=== PATIENT | male | born 1960 | race Caucasian/White ===

== ENCOUNTER 2020-10-28 23:45 | Inpatient (IN) | payer MEDICAID ==
[~2020-10-28] VITALS: Ht 180.3 cm; Wt 90.0 kg
[~2020-10-28 23:45] MED LIST: NO HOME MEDS
[2020-10-29 00:44] LABS: BASOPHILS # (AUTO) 0.1 X10'3 (0-0.2); BASOPHILS % (AUTO) 1.3 % (0-1); EOSINOPHILS # (AUTO) 0.6 X10'3 (0-0.9); EOSINOPHILS % (AUTO) 6.6 % (0-6); HEMATOCRIT 34.1 % (42.0-52.0); HEMOGLOBIN 11.8 g/dl (14.0-17.9); LYMPHOCYTES # (AUTO) 2.1 X10'3 (1.1-4.8); LYMPHOCYTES % (AUTO) 24.9 % (21-51); MEAN CORPUSCULAR HEMOGLOBIN 29.5 PG (27.0-31.0); MEAN CORPUSCULAR HGB CONC 34.7 g/dL (33.0-36.5); MEAN CORPUSCULAR VOLUME 85.1 FL (78-98); MEAN PLATELET VOLUME 6.6 FL (7.4-10.4); MONOCYTES # (AUTO) 0.6 X10'3 (0-0.9); MONOCYTES % (AUTO) 7.1 % (2-12); NEUTROPHILS # (AUTO) 5.2 X10'3 (1.8-7.7); NEUTROPHILS % (AUTO) 60.1 % (42-75); PLATELET COUNT 417 X10'3 (140-440); RED CELL DISTRIBUTION WIDTH 14.5 % (11.5-14.5); WHITE BLOOD COUNT 8.6 X10'3 (4.5-11.0)
[2020-10-29 01:03] LABS: ALBUMIN 3.5 G/DL (3.4-5.0); ANION GAP 13 (8-16); BILIRUBIN,TOTAL 0.3 MG/DL (0.1-1.0); BLOOD UREA NITROGEN 19 MG/DL (7-18); BUN/CREATININE RATIO 15.8 (5.4-32.0); C-REACTIVE PROTEIN 0.76 MG/DL (0.0-0.5); CALCIUM 8.6 MG/DL (8.5-10.1); CHLORIDE 107 MMOL/L (99-107); GLUCOSE 111 MG/DL (70-104); POTASSIUM 3.9 MMOL/L (3.5-5.1); SODIUM 144 MMOL/L (135-145); TOTAL CARBON DIOXIDE 24.4 MMOL/L (24-32); TOTAL PROTEIN 7.3 G/DL (6.4-8.2); eGFR 62 ML/MIN
[2020-10-29 01:04] LABS: ALANINE AMINOTRANSFERASE 26 U/L (12-78); ALBUMIN/GLOBULIN RATIO 0.9 (1.1-1.5); ALKALINE PHOSPHATASE 81 IU/L (46-116); ASPARTATE AMINO TRANSFERASE 16 U/L (10-37)
[2020-10-29] MEDS ORDERED: normal saline 1000ml 1,000 ML IV ONE (01:10)
[2020-10-29] MEDS ORDERED: magnesium hydroxide 30ml (MOM) UD suspension PO PRN (01:15)
[2020-10-29] MEDS ORDERED: ondansetron/PF 4mg/2ml inj IV PRN (01:15)
[2020-10-29] MEDS ORDERED: morphine 2 MG/ML inj. syringe IV PRN (01:15)
[2020-10-29] MEDS ORDERED: acetaminophen 325mg tablet PO PRN ×2 (01:15)
[2020-10-29] MEDS ORDERED: mag hydrox/Alum hydrox/simeth 30ml oral suspension PO PRN (01:15)
[2020-10-29] MEDS ORDERED: vancomycin/NS 1 GM ADD-VANTAGE 250 ML IV SCH (01:30)
[2020-10-29] MEDS: potassium cl 20mEq in 1/2 NS 1,000 ML IV SCH ×3 (04:14→22:00)
[2020-10-29] MEDS ORDERED: piperacillin/tazo 3.375gm/50ml 50 ML IV SCH (08:00)
--- NOTE | 2020-10-29 08:22 | NUR ---
Received patient report via phone from Papi OWENS for Steffany OWENS. Will pass off report to Steffany OWENS
[2020-10-29 09:00] VITALS: BP 130/68
[2020-10-29] MEDS: enoxaparin 40mg/0.4ml syringe SUBCUT SCH (10:30)
[2020-10-29 12:30] VITALS: BP 123/76
--- NOTE | 2020-10-29 18:34 | NUR ---
Problems reprioritized. Patient report given, questions answered & plan of care reviewed with ROMAN Mondragon.
[2020-10-29 19:00] VITALS: BP 155/95
--- NOTE | 2020-10-29 19:00 | NUR ---
Patient in room [facility]. I have received report from Yakelin OWENS and had the opportunity to ask questions and assume patient care.
[2020-10-30 00:34] VITALS: BP 130/72
[2020-10-30 06:10] LABS: BASOPHILS # (AUTO) 0.1 X10'3 (0-0.2); BASOPHILS % (AUTO) 1.7 % (0-1); EOSINOPHILS # (AUTO) 0.5 X10'3 (0-0.9); EOSINOPHILS % (AUTO) 10.2 % (0-6); HEMATOCRIT 35.3 % (42.0-52.0); HEMOGLOBIN 11.8 g/dl (14.0-17.9); LYMPHOCYTES # (AUTO) 1.6 X10'3 (1.1-4.8); LYMPHOCYTES % (AUTO) 29.9 % (21-51); MEAN CORPUSCULAR HEMOGLOBIN 29.1 PG (27.0-31.0); MEAN CORPUSCULAR HGB CONC 33.5 g/dL (33.0-36.5); MEAN CORPUSCULAR VOLUME 86.8 FL (78-98); MEAN PLATELET VOLUME 6.8 FL (7.4-10.4); MONOCYTES # (AUTO) 0.5 X10'3 (0-0.9); MONOCYTES % (AUTO) 9.4 % (2-12); NEUTROPHILS # (AUTO) 2.6 X10'3 (1.8-7.7); NEUTROPHILS % (AUTO) 48.8 % (42-75); PLATELET COUNT 386 X10'3 (140-440); RED BLOOD COUNT 4.06 X10'6 (4.70-6.10); RED CELL DISTRIBUTION WIDTH 14.9 % (11.5-14.5); WHITE BLOOD COUNT 5.4 X10'3 (4.5-11.0)
--- NOTE | 2020-10-30 06:11 | NUR ---
Problems reprioritized. Patient report given, questions answered & plan of care reviewed with Yakelin OWENS.
[2020-10-30 06:36] LABS: BLOOD UREA NITROGEN 14 MG/DL (7-18); BUN/CREATININE RATIO 16.9 (5.4-32.0); CREATININE 0.83 MG/DL (0.60-1.10); GLUCOSE 96 MG/DL (70-104); TOTAL CARBON DIOXIDE 25.7 MMOL/L (24-32)
[2020-10-30 06:37] LABS: ALANINE AMINOTRANSFERASE 21 U/L (12-78); ALBUMIN 2.9 G/DL (3.4-5.0); ALBUMIN/GLOBULIN RATIO 0.9 (1.1-1.5); ALKALINE PHOSPHATASE 66 IU/L (46-116); ASPARTATE AMINO TRANSFERASE 16 U/L (10-37); BILIRUBIN,TOTAL 0.5 MG/DL (0.1-1.0); CALCIUM 8.4 MG/DL (8.5-10.1); TOTAL PROTEIN 6.3 G/DL (6.4-8.2); eGFR > 90 ML/MIN
[2020-10-30 06:56] LABS: ANION GAP 9 (8-16); CHLORIDE 106 MMOL/L (99-107); POTASSIUM 4.2 MMOL/L (3.5-5.1); SODIUM 141 MMOL/L (135-145)
[2020-10-30 07:15] VITALS: BP 136/84
[2020-10-30] MEDS: enoxaparin 40mg/0.4ml syringe SUBCUT SCH (08:56)
[2020-10-30] MEDS: potassium cl 20mEq in 1/2 NS 1,000 ML IV SCH ×3 (08:57→20:17)
--- NOTE | 2020-10-30 11:43 | NUR ---
PAGER ID: [phone] MESSAGE: [id number]: pt c/o pain. only has morphine ordered. would you like something PO instead? thanks [phone]
[2020-10-30] MEDS ORDERED: HYDROcodone/acetaminophen 5mg/325mg tablet PO PRN (12:00)
[2020-10-30] MEDS: HYDROcodone/acetaminophen 10/325mg tab PO PRN ×2 (12:11→20:16)
[2020-10-30 12:14] VITALS: BP 118/72
[2020-10-30] MEDS ORDERED: VANCOMYCIN LEVEL IV ONE (12:30)
--- NOTE | 2020-10-30 18:09 | NUR ---
Problems reprioritized. Patient report given, questions answered & plan of care reviewed with ROMAN Mondragon.
[2020-10-30] MEDS ORDERED: prednisone 10mg tablet PO ONE (18:55)
[2020-10-30 19:00] VITALS: BP 117/62
--- NOTE | 2020-10-30 19:07 | NUR ---
Patient in room [facility]. I have received report from Yakelin OWENS and had the opportunity to ask questions and assume patient care.
[2020-10-30 23:43] VITALS: BP 127/85
[2020-10-31 06:18] LABS: BASOPHILS % (AUTO) 0.4 % (0-1); EOSINOPHILS % (AUTO) 0.1 % (0-6); HEMATOCRIT 36.2 % (42.0-52.0); HEMOGLOBIN 12.3 g/dl (14.0-17.9); LYMPHOCYTES # (AUTO) 0.7 X10'3 (1.1-4.8); LYMPHOCYTES % (AUTO) 11.3 % (21-51); MEAN CORPUSCULAR HEMOGLOBIN 29.2 PG (27.0-31.0); MEAN CORPUSCULAR HGB CONC 33.9 g/dL (33.0-36.5); MEAN CORPUSCULAR VOLUME 86.2 FL (78-98); MEAN PLATELET VOLUME 7.3 FL (7.4-10.4); MONOCYTES # (AUTO) 0.1 X10'3 (0-0.9); MONOCYTES % (AUTO) 1.1 % (2-12); NEUTROPHILS # (AUTO) 5.4 X10'3 (1.8-7.7); NEUTROPHILS % (AUTO) 87.1 % (42-75); PLATELET COUNT 417 X10'3 (140-440); RED CELL DISTRIBUTION WIDTH 14.7 % (11.5-14.5); WHITE BLOOD COUNT 6.2 X10'3 (4.5-11.0)
[2020-10-31 06:27] LABS: ALANINE AMINOTRANSFERASE 20 U/L (12-78); ALBUMIN 2.8 G/DL (3.4-5.0); ALBUMIN/GLOBULIN RATIO 0.7 (1.1-1.5); ALKALINE PHOSPHATASE 68 IU/L (46-116); ANION GAP 8 (8-16); ASPARTATE AMINO TRANSFERASE 14 U/L (10-37); BILIRUBIN,TOTAL 0.4 MG/DL (0.1-1.0); BLOOD UREA NITROGEN 14 MG/DL (7-18); BUN/CREATININE RATIO 17.7 (5.4-32.0); CALCIUM 8.3 MG/DL (8.5-10.1); CHLORIDE 105 MMOL/L (99-107); CREATININE 0.79 MG/DL (0.60-1.10); GLUCOSE 164 MG/DL (70-104); POTASSIUM 4.4 MMOL/L (3.5-5.1); SODIUM 139 MMOL/L (135-145); TOTAL CARBON DIOXIDE 26.5 MMOL/L (24-32); TOTAL PROTEIN 6.6 G/DL (6.4-8.2); eGFR > 90 ML/MIN
--- NOTE | 2020-10-31 06:34 | NUR ---
Problems reprioritized. Patient report given, questions answered & plan of care reviewed with Yakelin OWENS.
[2020-10-31 07:20] VITALS: BP 130/73
[2020-10-31] MEDS: enoxaparin 40mg/0.4ml syringe SUBCUT SCH (07:26)
[2020-10-31 12:39] VITALS: BP 115/71
[2020-10-31] MEDS: potassium cl 20mEq in 1/2 NS 1,000 ML IV SCH (15:45)
[2020-10-31] MEDS ORDERED: GADOTERATE MEGLUMINE 7.5 MMOL/15 ML VIAL IV ONE (17:47)
[2020-10-31 18:00] VITALS: BP 130/81
--- NOTE | 2020-10-31 18:46 | NUR ---
Patient in room [facility]. I have received report from IVANNA OWENS and had the opportunity to ask questions and assume patient care.
[2020-10-31] MEDS: HYDROcodone/acetaminophen 10/325mg tab PO PRN (20:53)
[2020-11-01] VITALS: BP 113/68
[2020-11-01] MEDS: potassium cl 20mEq in 1/2 NS 1,000 ML IV SCH (00:05)
--- NOTE | 2020-11-01 06:32 | NUR ---
Problems reprioritized. Patient report given, questions answered & plan of care reviewed with JOSÉ MIGUEL OWENS.
--- NOTE | 2020-11-01 06:36 | NUR ---
Patient in room [facility]. I have received report from ROMAN Crespo and had the opportunity to ask questions and assume patient care.
[2020-11-01 07:00] VITALS: BP 134/79
[2020-11-01 07:21] LABS: BASOPHILS # (AUTO) 0.1 X10'3 (0-0.2); BASOPHILS % (AUTO) 1.1 % (0-1); EOSINOPHILS # (AUTO) 0.4 X10'3 (0-0.9); EOSINOPHILS % (AUTO) 5.7 % (0-6); HEMATOCRIT 37.4 % (42.0-52.0); HEMOGLOBIN 12.6 g/dl (14.0-17.9); LYMPHOCYTES # (AUTO) 2.3 X10'3 (1.1-4.8); LYMPHOCYTES % (AUTO) 35.8 % (21-51); MEAN CORPUSCULAR HEMOGLOBIN 29.1 PG (27.0-31.0); MEAN CORPUSCULAR HGB CONC 33.7 g/dL (33.0-36.5); MEAN CORPUSCULAR VOLUME 86.4 FL (78-98); MONOCYTES # (AUTO) 0.6 X10'3 (0-0.9); MONOCYTES % (AUTO) 9.5 % (2-12); NEUTROPHILS % (AUTO) 47.9 % (42-75); PLATELET COUNT 395 X10'3 (140-440); RED BLOOD COUNT 4.33 X10'6 (4.70-6.10); RED CELL DISTRIBUTION WIDTH 14.7 % (11.5-14.5); WHITE BLOOD COUNT 6.3 X10'3 (4.5-11.0)
[2020-11-01 07:47] LABS: ALANINE AMINOTRANSFERASE 25 U/L (12-78); ALBUMIN/GLOBULIN RATIO 0.8 (1.1-1.5); ALKALINE PHOSPHATASE 68 IU/L (46-116); ANION GAP 7 (8-16); ASPARTATE AMINO TRANSFERASE 13 U/L (10-37); BILIRUBIN,TOTAL 0.3 MG/DL (0.1-1.0); BLOOD UREA NITROGEN 16 MG/DL (7-18); BUN/CREATININE RATIO 17.2 (5.4-32.0); CALCIUM 8.5 MG/DL (8.5-10.1); CHLORIDE 107 MMOL/L (99-107); CREATININE 0.93 MG/DL (0.60-1.10); GLUCOSE 90 MG/DL (70-104); POTASSIUM 4.3 MMOL/L (3.5-5.1); SODIUM 141 MMOL/L (135-145); TOTAL CARBON DIOXIDE 27.5 MMOL/L (24-32); TOTAL PROTEIN 6.6 G/DL (6.4-8.2); eGFR 83 ML/MIN
[2020-11-01] MEDS: enoxaparin 40mg/0.4ml syringe SUBCUT SCH (08:00)
[2020-11-01] MEDS: HYDROcodone/acetaminophen 10/325mg tab PO PRN (08:08)
[2020-11-01 11:00] VITALS: BP 118/77
--- NOTE | 2020-11-01 18:43 | NUR ---
Problems reprioritized. Patient report given, questions answered & plan of care reviewed with ROMAN Hernandez.
[2020-11-01 19:00] VITALS: BP 129/72
[2020-11-01] MEDS: morphine 2 MG/ML inj. syringe IV PRN (19:05)
[2020-11-02] VITALS: BP 124/64
[2020-11-02] MEDS: morphine 2 MG/ML inj. syringe IV PRN (02:54)
--- NOTE | 2020-11-02 06:25 | NUR ---
Patient in room [facility] 347. I have received report from Mary OWENS and had the opportunity to ask questions and assume patient care.
--- NOTE | 2020-11-02 06:31 | NUR ---
Problems reprioritized. Patient report given, questions answered & plan of care reviewed with Jeana OWENS. Addendum: 11/02/20 at 0631 by Mary Lujan RN Amended: Links added.
[2020-11-02 07:01] LABS: BASOPHILS # (AUTO) 0.1 X10'3 (0-0.2); BASOPHILS % (AUTO) 1.5 % (0-1); EOSINOPHILS # (AUTO) 0.4 X10'3 (0-0.9); HEMATOCRIT 37.7 % (42.0-52.0); HEMOGLOBIN 12.7 g/dl (14.0-17.9); LYMPHOCYTES # (AUTO) 1.5 X10'3 (1.1-4.8); LYMPHOCYTES % (AUTO) 29.1 % (21-51); MEAN CORPUSCULAR HEMOGLOBIN 29.1 PG (27.0-31.0); MEAN CORPUSCULAR HGB CONC 33.7 g/dL (33.0-36.5); MEAN CORPUSCULAR VOLUME 86.2 FL (78-98); MEAN PLATELET VOLUME 6.6 FL (7.4-10.4); MONOCYTES # (AUTO) 0.6 X10'3 (0-0.9); MONOCYTES % (AUTO) 10.9 % (2-12); NEUTROPHILS # (AUTO) 2.6 X10'3 (1.8-7.7); NEUTROPHILS % (AUTO) 50.5 % (42-75); PLATELET COUNT 356 X10'3 (140-440); RED BLOOD COUNT 4.37 X10'6 (4.70-6.10); WHITE BLOOD COUNT 5.2 X10'3 (4.5-11.0)
[2020-11-02 07:18] LABS: ALANINE AMINOTRANSFERASE 36 U/L (12-78); ALBUMIN/GLOBULIN RATIO 0.9 (1.1-1.5); ALKALINE PHOSPHATASE 58 IU/L (46-116); ANION GAP 6 (8-16); ASPARTATE AMINO TRANSFERASE 26 U/L (10-37); BILIRUBIN,TOTAL 0.4 MG/DL (0.1-1.0); BLOOD UREA NITROGEN 17 MG/DL (7-18); BUN/CREATININE RATIO 18.1 (5.4-32.0); CALCIUM 8.5 MG/DL (8.5-10.1); CHLORIDE 105 MMOL/L (99-107); CREATININE 0.94 MG/DL (0.60-1.10); GLUCOSE 89 MG/DL (70-104); POTASSIUM 4.2 MMOL/L (3.5-5.1); SODIUM 140 MMOL/L (135-145); TOTAL CARBON DIOXIDE 29.1 MMOL/L (24-32); TOTAL PROTEIN 6.5 G/DL (6.4-8.2); eGFR 82 ML/MIN
[2020-11-02 08:00] VITALS: BP 134/81
[2020-11-02] MEDS: enoxaparin 40mg/0.4ml syringe SUBCUT SCH (08:00)
[2020-11-02] MEDS: HYDROcodone/acetaminophen 10/325mg tab PO PRN (09:21)
[2020-11-02 11:00] VITALS: BP 122/65
[2020-11-02] MEDS ORDERED: ASPI-1265 PO (11:31)
[2020-11-02] MEDS ORDERED: ACET-1008 PO (11:31)
--- NOTE | 2020-11-02 14:30 | NUR ---
Pt is A & O x4 and in no apparent distress. pt verbalizes understanding of all Dc orders. Pt understands the importance of following with PCP and Dr Elizondo. pt's IV DC intact. pt DC to home with family. pt moving around well and able to do his care on his own. Pt's family came to the floor and pt was wheeled to the front where he was taken home.
== END 2020-11-02 14:30 | disposition home or self-care (01) | DRG 351 ==
LOC: ER 23:45 → ED HOLD 10-29 01:15 → SUR 3N 10-29 09:00
PROVIDERS: ADMIT Internal Medicine; ATTEND Family Medicine
DX: M25.072 Hemarthrosis, left ankle (principal); M00.9 Pyogenic arthritis, unspecified; F12.90 Cannabis use, unspecified, uncomplicated; M65.872 Other synovitis and tenosynovitis, left ankle and foot; G89.29 Other chronic pain; M54.9 Dorsalgia, unspecified; M25.571 Pain in right ankle and joints of right foot; F15.90 Other stimulant use, unspecified, uncomplicated; F17.210 Nicotine dependence, cigarettes, uncomplicated; Z91.14 Patient's other noncompliance with medication regimen
CPT/HCPCS: 36415; 73610; 73723; 80053; 83605; 84145; 84550; 85025; 85651; 86140; 87040; 87081; 97116; 97161; 97530; 99285; A9575; G0378; J1650; J2270; J2543; J3370; J3480; J7030; J7512

== ENCOUNTER 2022-10-27 09:56 | Emergency (ER) | payer MEDICAID ==
[~2022-10-27] VITALS: Ht 180.3 cm; Wt 90.9 kg
[2022-10-27 09:59] VITALS: BP 121/69
[2022-10-27 10:24] LABS: BASOPHILS # (AUTO) 0.1 X10'3 (0-0.2); EOSINOPHILS # (AUTO) 0.7 X10'3 (0-0.9); NEUTROPHILS # (AUTO) 12.3 X10'3 (1.8-7.7); PLATELET COUNT 299 X10'3 (140-440)
[2022-10-27 10:26] LABS: BASOPHILS % (AUTO) 0.6 % (0-1); EOSINOPHILS % (AUTO) 4.2 % (0-6); HEMATOCRIT 40.2 % (42.0-52.0); HEMOGLOBIN 13.2 g/dl (14.0-17.9); LYMPHOCYTES # (AUTO) 1.9 X10'3 (1.1-4.8); LYMPHOCYTES % (AUTO) 11.2 % (21-51); MEAN CORPUSCULAR HEMOGLOBIN 28.5 PG (27.0-31.0); MEAN CORPUSCULAR HGB CONC 32.8 g/dL (33.0-36.5); MEAN CORPUSCULAR VOLUME 86.9 FL (78-98); MONOCYTES # (AUTO) 1.6 X10'3 (0-0.9); MONOCYTES % (AUTO) 9.7 % (2-12); NEUTROPHILS % (AUTO) 74.3 % (42-75); RED BLOOD COUNT 4.62 X10'6 (4.70-6.10); RED CELL DISTRIBUTION WIDTH 15.2 % (11.5-14.5); WHITE BLOOD COUNT 16.5 X10'3 (4.5-11.0)
[2022-10-27 10:30] LABS: CLARITY,URINE CLEAR (Clear); COLOR,URINE YELLOW (Yellow); GLUCOSE, URINE NEGATIVE (Neg); KETONES,URINE NEGATIVE (Neg); LEUKOCYTE ESTERASE ,URINE NEGATIVE (Neg); NITRITES, URINE NEGATIVE (Neg); OCCULT BLOOD,URINE TRACE-INTACT (Neg); PH,URINE 5.5 (4.8-8.0); PROTEIN,URINE NEGATIVE (Neg); UROBILINOGEN,URINE 0.2 E.U/dL (0.2-1.0)
[2022-10-27] MEDS ORDERED: normal saline 1000ml 1,000 ML IV ONE (10:30)
[2022-10-27 10:34] LABS: UA COLLECTION TYPE CLN CATCH MIDSTREAM
[2022-10-27 10:40] LABS: BACTERIA,URINE FEW /HPF (Neg); HYALINE CASTS 0-3 /LPF (NEGATIVE); MUCUS STRANDS MANY /LPF (Neg); RBC,URINE 0-2 /HPF (0-2); SQUAMOUS EPITHELIAL CELL,UR FEW /LPF (FEW); WBC,URINE 0-4 /HPF (0-4)
[2022-10-27] MEDS ORDERED: PSYL575P22 PO (11:58)
[2022-10-27] MEDS ORDERED: AMOX-117 PO (11:58)
[2022-10-27 12:14] LABS: ALANINE AMINOTRANSFERASE 28 U/L (12-78); ALBUMIN 3.7 G/DL (3.4-5.0); ALKALINE PHOSPHATASE 88 IU/L (46-116); ANION GAP 11 (8-16); ASPARTATE AMINO TRANSFERASE 16 U/L (10-37); BILIRUBIN,TOTAL 0.9 MG/DL (0.1-1.0); BLOOD UREA NITROGEN 15 MG/DL (7-18); BUN/CREATININE RATIO 14.3 (10.0-20.0); CALCIUM 9.1 MG/DL (8.5-10.1); CHLORIDE 101 MMOL/L (99-107); CREATININE 1.05 MG/DL (0.60-1.10); GLUCOSE 118 MG/DL (70-104); LIPASE < 50 U/L (73-393); POTASSIUM 4.2 MMOL/L (3.5-5.1); SODIUM 136 MMOL/L (135-145); TOTAL CARBON DIOXIDE 24.2 MMOL/L (24-32); TOTAL PROTEIN 7.5 G/DL (6.4-8.2); eGFR 72 ML/MIN
== END 2022-10-27 12:47 | disposition home or self-care (01) ==
LOC: ER 09:56
DX: K57.92 Diverticulitis of intestine, part unspecified, without perforation or abscess without bleeding (principal); K59.00 Constipation, unspecified; F15.90 Other stimulant use, unspecified, uncomplicated; F12.90 Cannabis use, unspecified, uncomplicated
CPT/HCPCS: 74018; 74176; 80053; 81001; 83690; 85025; 99284; J7030; A6212; A6213

== ENCOUNTER 2024-03-28 20:51 | Emergency (ER) | payer MEDICAID ==
[~2024-03-28] VITALS: Ht 180.3 cm; Wt 90.9 kg
[~2024-03-28 20:51] MED LIST changes: +PSYL575P22 PO
[2024-03-28] MEDS: cyclobenzaprine 10mg tablet PO STA (21:41)
[2024-03-28] MEDS: dexamethasone sod phosphate 10mg/ml inj IM STA (21:41)
[2024-03-28] MEDS: ketorolac trometh 30MG/ML vial 30 MG/ML VIAL IM ONE (21:43)
[2024-03-28] MEDS ORDERED: MELO-102 PO (22:11)
[2024-03-28] MEDS ORDERED: PRED20TA PO (22:11)
[2024-03-28] MEDS ORDERED: HYDR-3973 PO (22:11)
[2024-03-28] MEDS ORDERED: METH-798 PO (22:11)
[2024-03-28 22:19] VITALS: BP 136/86; PULSE 80; RESP 16; TEMP 98.8; O2SAT 97
== END 2024-03-28 22:19 | disposition home or self-care (01) ==
LOC: ER 20:52
DX: S39.012A Strain of muscle, fascia and tendon of lower back, initial encounter (principal); G89.29 Other chronic pain; M54.2 Cervicalgia; M62.838 Other muscle spasm; Z79.899 Other long term (current) drug therapy; X50.0XXA Overexertion from strenuous movement or load, initial encounter; Y93.89 Activity, other specified; Y92.89 Other specified places as the place of occurrence of the external cause; Y99.8 Other external cause status
CPT/HCPCS: 96372; 99284; J1100; J1885

== ENCOUNTER 2024-09-18 20:55 | Emergency (ER) | payer MEDICAID ==
[~2024-09-18] VITALS: Ht 180.3 cm; Wt 90.9 kg
[~2024-09-18 20:55] MED LIST changes: +MELO-102 PO; +METH-798 PO
--- NOTE | 2024-09-18 21:18 | Physician Documentation ---
History of Present Illness ~ Chief Complaint: Foot pain Stated Complaint: L FOOT PAIN Time Seen by MD: 21:13 Primary Medical Doctor: NONE HPI 64-year-old gentleman who comes in for evaluation of pain in his left foot. He stepped on something needs to sharp, where he walks barefoot, about a week ago, did not notice it right away, but did noticed that he developed a possibly sist er on his foot three days ago. States that he is stubborn and did not want to come in right away because he was busy working. The particular palliating or aggravating factors for the pain. Did not attempt to treat it with the medication but to couple of shots of whiskey which helped. Does report chronic left ankle swelling, unchanged. Denies any other symptoms. He smokes one pack every three days, drinks. Denies drug use. Tetanus witin 5 years: Yes Medication Reconciliation Allergies: Coded Allergies: No Known Allergies (Unverified , 10/27/22) Scheduled Meloxicam (Meloxicam), 1 TAB PO DAILY Methocarbamol (Methocarbamol), 2 TAB PO Q8H Psyllium Husk (with Sugar) (Metamucil Powder), 5 ML PO DAILY Miscellaneous Medications Home Med List (No Home Medications), (Reported) Past Medical History Past Medical History: Chronic Back Pain, Extremity Fracture Past Surgical History: no surgical history, orthopedic surgeries Patient History: Patient reports no known family medical history. Alcohol Use: Occasionally Drug Use: marijuana, methamphetamine Lives In: Home Occupation: unemployed Review of Systems ROS 10 point review of systems was performed and unless noted above in HPI is negative for acute process/complaint. Physical Exam Physical Exam Physical examination: GENERAL: Awake, alert, oriented, GCS 15, no apparent distress, non-toxic appe aring, answers questions, follows commands appropriately. HEENT: Atraumatic, normocephalic, pupils equal, extraocular muscles intact Active gross movements, sclerae anicteric, mucus membranes moist, no stridor. NECK: Midline, no JVD CARDIOVASCULAR: Good skin perfusion without evidence of pallor, mottling. PULMONARY: Nonlabored, symmetric chest rise, no audible wheezing, no accessory muscle use, no respiratory distress, speaking in full sentences. GASTROINTESTINAL: Not distended. NEUROLOGIC: Lucid with normal mental status. Normal facial symmetry. Moves all extremities symmetrically and with purpose. No truncal ataxia. Speech is fluid without evidence of dysarthria or aphasia, no focal deficits appreciated. EXTREMITIES: Acute deformities Skin: warm, dry PSYCHIATRIC: Normal affect, normal insight, normal concentration. Focused exam: [] Left ankle is in fact swollen with a nonpitting edema. Nontender, no crepitus. All scar noted. There is a 8 mm blister on the sole of his foot filled with what appears to be purulent material. Minimal surrounding erythema. Neurovascularly intact distally to a site of injury. Procedures I&D Procedure : Site: Foot, left Anesthesia: Lidocaine w/ Epi Volume Anesthetic (mls): 2 Blade Size: 11 (Cruciate incision) Prep/Supplies: betadine prep, drapes applied, irrigated Incision: pus drained Tolerated Procedure Well?: yes, no complications Progress Results/Orders Results/Orders Orders - RENETTA DEVINE DO Foot, Complete (3vw Min) (09/18/24 21:31) Completed Orders - RENETTA DEVINE DO Sulfamethox/Trimetho. Ds Tab (Septra Ds (09/18/24 21:20) Cephalexin Capsule (Keflex Capsule) (09/18/24 21:20) Foot, Complete (3vw Min) (09/18/24 21:31) Ketorolac Trometh 30mg/Ml Vial (Toradol (09/18/24 21:20) Lidocaine 1% W/Epi 1:100,000 (Xylocaine (09/18/24 23:50) Medications Received in ER Medications (Trade) Dose Ordered Sig/Eli Route PRN Reason Start Time Stop Time Status Last Admin Dose Admin (Septra DS tab) 1 tab ONCE ONCE PO 09/18/24 21:20 09/18/24 21:21 DC 09/18/24 22:40 1 TAB (Keflex capsule) 500 mg ONCE ONCE PO 09/18/24 21:20 09/18/24 21:21 DC 09/18/24 22:39 500 MG (Toradol inj. 30mg/ml) 30 mg ONCE ONCE IM 09/18/24 21:20 09/18/24 21:21 DC 09/18/24 22:39 30 MG (Xylocaine 1%-EPI 1:100,000) 20 ml ONCE ONCE SQ 09/18/24 23:50 09/18/24 23:51 DC 09/19/24 00:27 20 ML Vital Signs 09/18/24 09/18/24 21:07 22:39 Temp 98.4 Pulse 90 Resp 16 18 B/P (MAP) 144/89 Pulse Ox 94 O2 Flow Rate 0 Medical Decision Making Findings Facility Status: ED Holds, RME process The plan was discussed with the patient, who demonstrates clear understanding of the plan and is in agreement with the plan unless otherwise noted in the chart. All questions have been answered, all concerns were addressed unless otherwise documented. I was available throughout their ED stay for frequent reassessment and questions. Differential Diagnoses (considered and possible or likely): [Foot cellulitis, foot abscess, unlikely to represent necrotizing fasciitis or gas gangrene] ??Differential Diagnoses (considered and unlikely, not requiring evaluation currently): [No evidence of neurovascular injury. No evidence of neuropathy or immunocompromise per patient] MDM Data Please see [facility] for the following: Independent Historians and external Records Review. Historian: [Patient] Independent Historians: ?[Non] Medication Management: [Reviewed medication list] Social History and determinants: [Reviewed] Please see the body of the note for the following: Any independent interpretations of ECG, imaging studies. All vitals signs/haemodynamics, ordered tests were independently reviewed and interpreted by myself. Nursing triage complaint and vitals reviewed, additional nursing notes were reviewed as available and I agree unless otherwise noted or documented in contradiction in the chart Vital Signs: Independently reviewed Labs: Independently interpreted Imaging: Independently interpreted Old Medical Records: Independently reviewed, see [facility] for relevant summary and information Pulse Oximetry: [98%] interpreted as [normal on room air] by me Additionally notably showing: [] Tests considered but not ordered include: [] Social Determinants of Health Impact: Patient was evaluated in [facility], or [facility] [place] to healthcare due to below par ratio of patient to medical providers. [] Comorbid Conditions Impacting Present Evaluation and Care/Treatment: [] Management Discussions with other Healthcare Providers: [] Treatment and Disposition Medication Management (Given or considered): []. See EMR for details Consideration for Hospitalization/Escalation/Deescalation of Care: Admission for observation has been considered, [however the patient is able to tolerate p.o., their symptoms are controlled, they are able to rely on oral medications, and their chief complaint/diagnosis can be managed on outpatient basis.] ?ED Course:?[] ?Shared decision making:?[] Code status:?FULL Please see the full Electronic Medical Record for full details of nursing documentation, medications list, other records of complete past medical history and conditions, vital signs, laboratory studies, and any radiologic study interpretations by radiologists. Portions of this note were completed using [employer] dictation software and as a result there may exist minor errors in spelling. I have reviewed elements of past family and social history and agree as included in note. Departure Disposition: HOME / SELF CARE / HOMELESS Impression: Primary Impression: Abscess of foot Condition: Improved Discharge Instructions: Cellulitis Referrals: NO PRIMARY CARE PROVIDER (PCP) Prescriptions Cephalexin*Monohydrate* (Keflex*) 500 Mg Capsule 1 CAP PO Q6H for 10 Days, #40 CAP Prov: RENETTA DEVINE DO 09/19/24 Sulfamethoxazole/Trimethoprim (Bactrim Ds Tablet) 800 Mg-160 Mg Tablet 1 TAB PO Q12H for 10 Days, #20 TAB Prov: RENETTA DEVINE DO 09/19/24 Education Educated: Patient Educated regarding: diagnosis, treatment, prognosis, need for follow up Signature Scribe Signature: No scribe Attestation: This note accurately reflects clinical decisions, work performed by myself, DO SYBIL Alvarez NICHOLAS M DO Sep 18, 2024 21:17
[2024-09-18] MEDS: cephalexin 250mg capsule PO ONE (22:39)
[2024-09-18] MEDS: ketorolac trometh 30MG/ML vial 30 MG/ML VIAL IM ONE (22:39)
[2024-09-18] MEDS: sulfamethoxazole/trimethoprim DS (800/160mg) tablet PO ONE (22:40)
[2024-09-19] MEDS: LIDOcaine 1% W/epiNEPHrine 1:100,000 20ml vial SQ ONE (00:27)
--- NOTE | 2024-09-19 00:31 | RADIOLOGY REPORT ---
CLINICAL INDICATION: LEFT FOOT, Abscess on the sole of the foot, Gas TECHNIQUE: DI FOOT, COMPLETE (3VW MIN) Comparison: None FINDINGS/IMPRESSION: : Normal mineralization and alignment. There is mild hallux valgus. Mild 1st MTP joint osteoarthritis. No acute fracture. Note is made of os peroneum. Moderate tibiotalar joint osteoarthritis. Mild degenerative change of the dorsum of the foot. No definite cortical destruction or focal osteopenia to suggest osteomyelitis. MRI would be more sens itive for this diagnosis.
[2024-09-19 00:59] VITALS: BP 140/86; PULSE 90; RESP 16; TEMP 98.6; O2SAT 99
[2024-09-19] MEDS ORDERED: SULF1TAB49 PO (01:00)
[2024-09-19] MEDS ORDERED: CEPH-585 PO (01:00)
== END 2024-09-19 01:10 | disposition home or self-care (01) ==
LOC: ER 20:55
DX: L02.612 Cutaneous abscess of left foot (principal); F17.200 Nicotine dependence, unspecified, uncomplicated; F12.90 Cannabis use, unspecified, uncomplicated; F15.90 Other stimulant use, unspecified, uncomplicated; Z56.0 Unemployment, unspecified; Z72.89 Other problems related to lifestyle
CPT/HCPCS: 10060; 73630; 87070; 87077; 87186; 96372; 99284; J1885; J3490; 99283